=== PATIENT | female | born 1935 | race Caucasian/White ===

== ENCOUNTER 2017-10-02 18:10 | Inpatient (IN) | payer OTHER ==
[~2017-10-02] VITALS: Ht 170.2 cm; Wt 81.3 kg
[~2017-10-02 18:10] MED LIST: GALA4 PO; LISI5 PO; METF500 PO; METO100ER PO; NAPR500 PO; NITR50 PO; OMEP20ER PO; SIMV20 PO; ZYPREXA PO
[2017-10-02 20:05] LABS: BASOPHILS ABSOLUTE AUTO 0.02 K/mm3 (0.00-0.23); BASOPHILS PERCENT AUTO 0 % (0-2); EOSINOPHILS ABSOLUTE AUTO 0.07 K/mm3 (0.00-0.68); EOSINOPHILS PERCENT AUTO 1 % (0-6); Hematocrit 33.6 % (33.0-51.0); Hemoglobin 10.3 g/dL (11.5-16.0); IMMATURE GRAN ABSOLUTE AUTO 0.03 K/mm3 (0.00-0.10); IMMATURE GRAN PERCENT AUTO 0 % (0-1); LYMPHOCYTES ABSOLUTE AUTO 2.47 K/mm3 (0.84-5.20); LYMPHOCYTES PERCENT AUTO 25 % (21-46); MONOCYTES ABSOLUTE AUTO 0.92 K/mm3 (0.16-1.47); MONOCYTES PERCENT AUTO 9 % (4-13); Mean Corpuscular HGB 28.1 pg (26.0-34.0); Mean Corpuscular HGB Conc 30.7 g/dL (31.5-36.5); Mean Corpuscular Volume 92 fL (80-100); Mean Platelet Volume 9.4 fL (9.1-12.4); NEUTROPHILS ABSOLUTE AUTO 6.27 K/mm3 (1.96-9.15); NEUTROPHILS PERCENT AUTO 64 % (41-73); Platelet Count 219 K/mm3 (150-400); RDW Coefficient Variation 17.2 % (11.7-14.2); RDW Standard Deviation 56.2 fL (35.1-46.3); Red Blood Cell Count 3.66 M/mm3 (3.80-5.20); White Blood Cell Count 9.78 K/mm3 (4.00-11.30)
[2017-10-02 20:31] LABS: Alanine Aminotransfer (ALT/SGP 16 U/L (12-78); Albumin/Globulin Ratio 0.8 (0.8-1.8); Alk Phos 38 U/L (50-136); Anion Gap 9 mmol/L (6-16); Aspartate Aminotrans (AST/SGOT 25 U/L (12-37); Bilirubin, Total 0.3 mg/dL (0.1-1.0); Blood Urea Nitrogen 18 mg/dL (8-24); Bun/Creatinine Ratio 26.7 (12.0-20.0); CO2, Blood 26 mmol/L (21-32); Calcium, Blood 8.9 mg/dL (8.5-10.1); Chloride, Blood 105 mmol/L (98-108); Creatinine, Blood 0.67 mg/dL (0.40-1.00); Glomerular Filtration Rate >60 (60-); Glucose, Blood 160 mg/dL (70-99); Potassium, Blood 3.9 mmol/L (3.5-5.5); Sodium, Blood 140 mmol/L (136-145)
[2017-10-02] MEDS ORDERED: DOCU100 PO (21:47)
[2017-10-02] MEDS ORDERED: GALA4 PO (21:47)
[2017-10-02] MEDS ORDERED: MELA3 PO (21:48)
[2017-10-02] MEDS ORDERED: HYDR1TAB94 PO (21:48)
[2017-10-02] MEDS ORDERED: METF500C PO (21:49)
[2017-10-02] MEDS ORDERED: MIRT15 PO (21:51)
[2017-10-02] MEDS ORDERED: QUET25 PO (21:53)
[2017-10-03 04:29] LABS: BASOPHILS ABSOLUTE AUTO 0.02 K/mm3 (0.00-0.23); BASOPHILS PERCENT AUTO 0 % (0-2); EOSINOPHILS ABSOLUTE AUTO 0.05 K/mm3 (0.00-0.68); EOSINOPHILS PERCENT AUTO 1 % (0-6); Hematocrit 30.1 % (33.0-51.0); Hemoglobin 9.4 g/dL (11.5-16.0); IMMATURE GRAN ABSOLUTE AUTO 0.04 K/mm3 (0.00-0.10); IMMATURE GRAN PERCENT AUTO 1 % (0-1); LYMPHOCYTES ABSOLUTE AUTO 1.98 K/mm3 (0.84-5.20); LYMPHOCYTES PERCENT AUTO 25 % (21-46); MONOCYTES ABSOLUTE AUTO 0.79 K/mm3 (0.16-1.47); MONOCYTES PERCENT AUTO 10 % (4-13); Mean Corpuscular HGB 28.4 pg (26.0-34.0); Mean Corpuscular HGB Conc 31.2 g/dL (31.5-36.5); Mean Corpuscular Volume 91 fL (80-100); Mean Platelet Volume 9.2 fL (9.1-12.4); NEUTROPHILS ABSOLUTE AUTO 5.09 K/mm3 (1.96-9.15); NEUTROPHILS PERCENT AUTO 64 % (41-73); Platelet Count 197 K/mm3 (150-400); RDW Coefficient Variation 16.8 % (11.7-14.2); RDW Standard Deviation 54.8 fL (35.1-46.3); Red Blood Cell Count 3.31 M/mm3 (3.80-5.20); White Blood Cell Count 7.97 K/mm3 (4.00-11.30)
[2017-10-03 04:50] LABS: Anion Gap 8 mmol/L (6-16); Blood Urea Nitrogen 15 mg/dL (8-24); Bun/Creatinine Ratio 23.1 (12.0-20.0); CO2, Blood 28 mmol/L (21-32); Calcium, Blood 8.5 mg/dL (8.5-10.1); Chloride, Blood 107 mmol/L (98-108); Creatinine, Blood 0.65 mg/dL (0.40-1.00); Glomerular Filtration Rate >60 (60-); Glucose, Blood 93 mg/dL (70-99); Potassium, Blood 3.8 mmol/L (3.5-5.5); Sodium, Blood 143 mmol/L (136-145)
[2017-10-04 09:49] LABS: Adenovirus F 40/41 Not Detected (NOT DETECT); Astrovirus Not Detected (NOT DETECT); Campylobacter Sp Not Detected (NOT DETECT); Cryptosporidium Not Detected (NOT DETECT); Cyclospora Cayetanensis Not Detected (NOT DETECT); E. Coli O157 Not Detected (NOT DETECT); Entamoeba Histolytica Not Detected (NOT DETECT); Enteroaggregative E. coli-EAEC Not Detected (NOT DETECT); Enteropathogenic E. coli-EPEC Not Detected (NOT DETECT); Enterotoxigenic E. coli-ETEC Not Detected (NOT DETECT); Giardia Lamblia Not Detected (NOT DETECT); Norovirus GI/GII Not Detected (NOT DETECT); Plesiomonas Shigelloides Not Detected (NOT DETECT); Rotavirus A Not Detected (NOT DETECT); Salmonella Sp Not Detected (NOT DETECT); Sapovirus Not Detected (NOT DETECT); Shiga Toxin-prod E. coli-STEC Not Detected (NOT DETECT); Shigella/Enteroin E. coli-EIEC Not Detected (NOT DETECT); Vibrio Cholerae Not Detected (NOT DETECT); Vibrio Sp Not Detected (NOT DETECT); Yersinia Enterocolitica Not Detected (NOT DETECT)
[2017-10-05] MEDS ORDERED: GALA8 PO (16:25)
[2017-10-05] MEDS ORDERED: ACET325 PO (16:28)
[2017-10-05] MEDS ORDERED: BENADRYL25 MG PO (16:29)
[2017-10-05] MEDS ORDERED: LEVO750 PO (16:30)
== END 2017-10-05 16:50 | DRG 871 ==
LOC: ER 18:10 → MEDS 21:14
PROVIDERS: Family Medicine; Physician Assistant
DX: A41.9 Sepsis, unspecified organism (principal); J96.01 Acute respiratory failure with hypoxia; J18.9 Pneumonia, unspecified organism; I10 Essential (primary) hypertension; E11.9 Type 2 diabetes mellitus without complications; E78.5 Hyperlipidemia, unspecified; F20.9 Schizophrenia, unspecified; D64.9 Anemia, unspecified; F03.90 Unspecified dementia, unspecified severity, without behavioral disturbance, psychotic disturbance, mood disturbance, and anxiety; E66.9 Obesity, unspecified; Z68.27 Body mass index [BMI] 27.0-27.9, adult
CPT/HCPCS: 36415; 71046; 80048; 80053; 82947; 83605; 85025; 87507; 92610; 93005; 93010; 94667; 96365; 96366; 99285; G8996; G8997; G8998; J0456; J1956; J7030; J7050

== ENCOUNTER → 2018-09-19 | Outpatient (CLI) | payer OTHER ==
[~2018-09-19] MED LIST changes: +ACET325 PO; +BENADRYL25 MG PO; +DOCU100 PO; +GALA8 PO; +HYDR1TAB94 PO; +LEVO750 PO; +MELA3 PO; +METF500C PO; +MIRT15 PO; +QUET25 PO
[2018-09-19 18:22] LABS: Source, Urine Clean Catch
[2018-09-19 18:47] LABS: Bilirubin, Urine Neg (Neg); Blood, Urine 1+ (Neg); Glucose Qualitative, Urine Neg (Neg); Ketones, Urine Neg (Neg); Leukocyte Esterase, Urine 2+ (Neg); Nitrite, Urine Neg (Neg); Protein, Urine 1+ (Neg); Urobilinogen, Urine NORM (Normal)
[2018-09-19 18:54] LABS: Appearance, Urine Clear (Clear); Color, Urine Yellow (P-Yellow)
[2018-09-19 18:56] LABS: Bacteria Many /hpf; Mucus Light (0-Heavy); Red Blood Cells, Urine 0-2 /hpf (0-2); Squamous Epithelial Cells Few /hpf (Few); White Blood Cells, Urine 50-100 /hpf (0-5)
== END | disposition home or self-care (01) ==
LOC: LAB 18:18 → LAB SHORT 18:18
PROVIDERS: Physician Assistant
DX: N39.0 Urinary tract infection, site not specified (principal)
CPT/HCPCS: 81001; 87086

== ENCOUNTER → 2021-08-21 | Outpatient (CLI) | payer OTHER ==
[~2021-08-21] MED LIST changes: +ARNUITY ELLIP100 MCG IH; +Norco 5-325 Ta1 EACH PO; +OYSTER SHELL 51 EAC2 PO; +VITAMIN B COMP1 EAC1 PO; +VITAMIN D31000 UNI1
[2021-08-21 10:01] LABS: Source, Urine Voided
[2021-08-21 11:12] LABS: Appearance, Urine Clear (Clear); Bilirubin, Urine Neg (Neg); Blood, Urine Neg (Neg); Color, Urine Yellow (P-Yellow); Glucose Qualitative, Urine Neg (Neg); Ketones, Urine Neg (Neg); Leukocyte Esterase, Urine Neg (Neg); Nitrite, Urine Neg (Neg); Protein, Urine Neg (Neg); Specific Gravity, Urine 1.015 (1.003-1.022); Urobilinogen, Urine NORM (Normal); pH, Urine 6.5 (5.0-8.0)
== END | disposition home or self-care (01) ==
LOC: LAB SHORT 09:59 → LAB 09:59
PROVIDERS: Family Medicine
DX: N39.0 Urinary tract infection, site not specified (principal)
CPT/HCPCS: 81003

== ENCOUNTER → 2022-03-15 | Outpatient (CLI) | payer OTHER ==
[2022-03-15 11:45] LABS: Source, Urine Clean Catch
[2022-03-15 13:23] LABS: Appearance, Urine Turbid (Clear); Bilirubin, Urine Neg (Neg); Blood, Urine Neg (Neg); Color, Urine Yellow (P-Yellow); Glucose Qualitative, Urine Neg (Neg); Ketones, Urine Neg (Neg); Leukocyte Esterase, Urine Neg (Neg); Nitrite, Urine Neg (Neg); Protein, Urine 1+ (Neg); Specific Gravity, Urine 1.025 (1.003-1.022); Urobilinogen, Urine NORM (Normal)
[2022-03-15 13:56] LABS: Amorphous Heavy (0-Heavy); Bacteria Rare /hpf; Red Blood Cells, Urine 0-2 /hpf (0-2); Squamous Epithelial Cells Rare /hpf (Few); White Blood Cells, Urine 0-2 /hpf (0-5)
== END | disposition home or self-care (01) ==
LOC: LAB SHORT 11:44 → LAB 11:44
PROVIDERS: Family Medicine
DX: N39.0 Urinary tract infection, site not specified (principal)
CPT/HCPCS: 81001

== ENCOUNTER 2022-11-01 00:24 | Day surgery (SDC) | payer OTHER ==
[~2022-11-01 00:24] MED LIST changes: +CLIN150 PO
== END 2022-11-01 22:58 | disposition home or self-care (01) ==
LOC: WOUND 00:24
DX: E11.622 Type 2 diabetes mellitus with other skin ulcer (principal); L97.812 Non-pressure chronic ulcer of other part of right lower leg with fat layer exposed; I73.9 Peripheral vascular disease, unspecified; I87.2 Venous insufficiency (chronic) (peripheral)
CPT/HCPCS: A9270; G0463

== ENCOUNTER 2022-11-15 02:19 | Day surgery (SDC) | payer OTHER | END 2022-11-15 22:48 | disposition home or self-care (01) | LOC: WOUND 02:19 | DX: E11.622 Type 2 diabetes mellitus with other skin ulcer (principal); L97.812 Non-pressure chronic ulcer of other part of right lower leg with fat layer exposed; E11.51 Type 2 diabetes mellitus with diabetic peripheral angiopathy without gangrene; I87.2 Venous insufficiency (chronic) (peripheral) | CPT/HCPCS: A9270; G0463 ==

== ENCOUNTER 2022-11-22 02:03 | Day surgery (SDC) | payer OTHER | END 2022-11-22 22:39 | disposition home or self-care (01) | LOC: WOUND 02:03 | DX: E11.622 Type 2 diabetes mellitus with other skin ulcer (principal); L97.812 Non-pressure chronic ulcer of other part of right lower leg with fat layer exposed; I87.2 Venous insufficiency (chronic) (peripheral); E11.51 Type 2 diabetes mellitus with diabetic peripheral angiopathy without gangrene | CPT/HCPCS: G0463 ==

== ENCOUNTER 2022-11-29 02:18 | Day surgery (SDC) | payer OTHER | END 2022-11-29 22:55 | disposition home or self-care (01) | LOC: WOUND 02:18 | DX: E11.622 Type 2 diabetes mellitus with other skin ulcer (principal); L97.812 Non-pressure chronic ulcer of other part of right lower leg with fat layer exposed; I87.2 Venous insufficiency (chronic) (peripheral); E11.51 Type 2 diabetes mellitus with diabetic peripheral angiopathy without gangrene | CPT/HCPCS: G0463 ==

== ENCOUNTER 2022-12-06 00:50 | Day surgery (SDC) | payer OTHER | END 2022-12-06 22:45 | disposition home or self-care (01) | LOC: WOUND 00:50 | DX: E11.622 Type 2 diabetes mellitus with other skin ulcer (principal); L97.812 Non-pressure chronic ulcer of other part of right lower leg with fat layer exposed; E11.51 Type 2 diabetes mellitus with diabetic peripheral angiopathy without gangrene; I87.2 Venous insufficiency (chronic) (peripheral) | CPT/HCPCS: G0463 ==

== ENCOUNTER 2023-01-18 09:57 | Inpatient (IN) | payer OTHER ==
[~2023-01-18] VITALS: Ht 162.6 cm; Wt 68.0 kg
[~2023-01-18 09:57] MED LIST changes: -ARNUITY ELLIP100 MCG IH; +ARNUITY ELLIP100 MCG INH; -GALA8 PO; +GALANTAMINE PO; -SIMV20 PO; +Seroquel Xr50 MG PO; -VITAMIN D31000 UNI1; +VITAMIN D31000 UNI1 PO; +ZOCOR20 MG PO
[2023-01-18 11:23] LABS: BASOPHILS ABSOLUTE AUTO 0.04 K/mm3 (0.00-0.23); BASOPHILS PERCENT AUTO 0 % (0-2); EOSINOPHILS ABSOLUTE AUTO 0.04 K/mm3 (0.00-0.68); EOSINOPHILS PERCENT AUTO 0 % (0-6); Hematocrit 30.4 % (33.0-51.0); Hemoglobin 9.6 g/dL (11.5-16.0); IMMATURE GRAN ABSOLUTE AUTO 0.05 K/mm3 (0.00-0.10); IMMATURE GRAN PERCENT AUTO 0 % (0-1); LYMPHOCYTES ABSOLUTE AUTO 0.94 K/mm3 (0.84-5.20); LYMPHOCYTES PERCENT AUTO 8 % (21-46); MONOCYTES PERCENT AUTO 8 % (4-13); Mean Corpuscular HGB 28.3 pg (26.0-34.0); Mean Corpuscular HGB Conc 31.6 g/dL (31.5-36.5); Mean Corpuscular Volume 90 fL (80-100); Mean Platelet Volume 9.6 fL (9.1-12.4); NEUTROPHILS ABSOLUTE AUTO 9.76 K/mm3 (1.96-9.15); NEUTROPHILS PERCENT AUTO 83 % (41-73); Platelet Count 230 K/mm3 (150-400); RDW Coefficient Variation 21.8 % (11.7-14.2); RDW Standard Deviation 71.7 fL (35.1-46.3); Red Blood Cell Count 3.39 M/mm3 (3.80-5.20); White Blood Cell Count 11.73 K/mm3 (4.00-11.30)
[2023-01-18 11:37] LABS: Albumin, Blood 3.4 g/dL (3.4-5.0); Bilirubin, Total 0.4 mg/dL (0.1-1.0); Bun/Creatinine Ratio 21.8 (12.0-20.0); Calcium, Blood 8.8 mg/dL (8.5-10.1); Creatinine, Blood 0.78 mg/dL (0.40-1.00); Globulin, Blood 3.5 g/dL (2.2-4.0); Potassium, Blood 4.2 mmol/L (3.5-5.5); Total Protein, Blood 6.9 g/dL (6.4-8.2)
[2023-01-18 12:15] LABS: Influenza A, PCR NEGATIVE (NEGATIVE); Influenza B, PCR NEGATIVE (NEGATIVE); Resp Syncytial Virus, PCR NEGATIVE (NEGATIVE); SARS-Cov-2 (COVID-19) PCR, MMC NEGATIVE (NEGATIVE)
--- NOTE | 2023-01-18 15:47 | NUR ---
ASSUMED CARE OF PT. PT ARRIVED IN ROOM AT AROUND 1535 VIA GURNEY FROM THE ED. PT ALERT AND ORIENTED TO ROOM AND UNIT.
[2023-01-18 15:54] VITALS: BP 151/82
[2023-01-18] MEDS ORDERED: GUAI600T33 PO (17:47)
[2023-01-18] MEDS ORDERED: Seroquel Xr50 MG PO (17:48)
--- NOTE | 2023-01-18 18:00 | NUR ---
SHIFT SUMMARY PT AND FAMILY ORIENTED TO ROOM AND EDUCATED ON FIRE SAFETY. PT HAS CRITICAL LACTIC ACID LEVELS, DR NOTIFIED OF CURRENT CONDITION. NO ACUTE EVENTS DURING SHIFT, PT LEFT IN A POSITION OF SAFETY WITH BED LOCKED AND IN LOWEST POSITION, FAMILY AT BEDSIDE, NONSKID SOCKS IN PLACE, CALL LIGHT WITHIN REACH.
[2023-01-18 19:37] VITALS: BP 142/66
[2023-01-18 22:55] VITALS: BP 154/59
[2023-01-19 04:51] VITALS: BP 143/61
[2023-01-19 06:15] LABS: BASOPHILS ABSOLUTE AUTO 0.05 K/mm3 (0.00-0.23); BASOPHILS PERCENT AUTO 0 % (0-2); EOSINOPHILS PERCENT AUTO 1 % (0-6); Hematocrit 28.3 % (33.0-51.0); Hemoglobin 8.9 g/dL (11.5-16.0); IMMATURE GRAN PERCENT AUTO 1 % (0-1); LYMPHOCYTES ABSOLUTE AUTO 2.16 K/mm3 (0.84-5.20); LYMPHOCYTES PERCENT AUTO 18 % (21-46); MONOCYTES ABSOLUTE AUTO 1.49 K/mm3 (0.16-1.47); MONOCYTES PERCENT AUTO 13 % (4-13); Mean Corpuscular HGB 28.2 pg (26.0-34.0); Mean Corpuscular HGB Conc 31.4 g/dL (31.5-36.5); Mean Corpuscular Volume 90 fL (80-100); Mean Platelet Volume 9.8 fL (9.1-12.4); NEUTROPHILS ABSOLUTE AUTO 7.88 K/mm3 (1.96-9.15); NEUTROPHILS PERCENT AUTO 67 % (41-73); Platelet Count 217 K/mm3 (150-400); RDW Standard Deviation 72.5 fL (35.1-46.3); Red Blood Cell Count 3.16 M/mm3 (3.80-5.20); White Blood Cell Count 11.78 K/mm3 (4.00-11.30)
--- NOTE | 2023-01-19 06:22 | NUR ---
SUMMARY: PT HAS DEMENTIA BUT IS A/O TO SELF AND "[place]" AND IS ABLE TO SPECIFY NEEDS WHEN STAFF IN ROOM. BED ALARM ON FOR FALL RISK AND IMPULSIVITY W/REMINDERS PROVIDED PRN. SHE BECOMES VERY TACHYPNEIC AND SOB AT TIMES, MADE WORSE WHEN SPEAKING OR W/MINIMAL EXERTION. LS ARE COARSE W/CRACKLES T/O AND PT HAS DIFFICULTY COUGHING TO CLEAR SECRETIONS. RT CONSULTED AND HOPSITALIST RX'D FLUTTER AND ALBUTEROL TX'S. PT ENCOURAGED TO DEEP BREATH AND COUGH W/PRN ORAL SUCTIONING ATTENDED TO. FLUTTER VALVE WAS THEN RX'D W/SCOPALAMINE PATCH PLACED TO HELP W/EXCESS SECRETIONS. LS REMAIN CONGESTED AND COARSE BUT RESP EFFORT AND DYSPNEA SLIGHTLY IMPROVED, SPO2 SUSTAINED >92% ON 2L O2 VIA NC. ABX TO BE RECEIVED ON DAY SHIFT FOR PROBABLE PNM. SHE REMAINS ON TELE IN NSR AT 60'S BPM, OCC S.TACH W/EXERTION. PT CONT/INCONT AND WAS 1-2PA OOB TO BSC W/ATTENDS CHANGED PRN. NO ACUTE CHANGS, VSS/AFEBRILE. WCTM AND REPORT TO DAY RN.
[2023-01-19 06:45] LABS: Albumin/Globulin Ratio 0.9 (0.8-1.8); Bilirubin, Total 0.3 mg/dL (0.1-1.0); Bun/Creatinine Ratio 19.8 (12.0-20.0); Calcium, Blood 8.6 mg/dL (8.5-10.1); Creatinine, Blood 0.61 mg/dL (0.40-1.00); Globulin, Blood 3.5 g/dL (2.2-4.0); Total Protein, Blood 6.5 g/dL (6.4-8.2)
[2023-01-19 07:10] VITALS: BP 148/56
[2023-01-19 15:17] VITALS: BP 174/65
--- NOTE | 2023-01-19 18:09 | NUR ---
SHIFT SUMMARY PT A&O TO SELF AND PERSON. PT CONFUSED AND REORIENTABLE. PT ATTEMPTS TO AMBULATE INDEPENDENTLY AND REQUIRES INCREASED MONITORING. DOOR LEFT OPEN, BED/CHAIR ALARM IN PLACE. VSS. PT STILL EXPERIENCING ABNORMAL LUNG SOUNDS AND HAS BEEN ENCOURAGED TO DEEP BREATH AND COUGH ALONG WITH UTELIZE THE FLUTTER VALVE. RT ON BOARD WITH PROVIDING CARE. PT LEFT IN A POSITION OF SAFETY WITH BED LOCKED AND IN LOWEST POSITION, CALL LIGHT WITHIN REACH, NONSKID SOCKS IN PLACE, FLOOR CLEAR OF [place]BRIS, DOOR OPEN TO MAINTAIN OBSERVATION, AND BED ALARM ENABLED. NO ACUTE CHANGES DURING MY SHIFT, NO QUESTIONS OR CONCERNS AT THIS TIME.
--- NOTE | 2023-01-19 19:30 | NUR ---
RECEIVED BEDSIDE REPORT FROM TIMO RN. PT IN BED. ALERT TO SELF ONLY. RESP EVEN ON 2L VIA NC. WILL PROVIDE CARE T/O SHIFT. CALL LT IN REACH. BED ALARM ON.
[2023-01-19 19:52] VITALS: BP 142/58
--- NOTE | 2023-01-19 23:00 | NUR ---
PT RESTING QUIETLY. BED ALARM ON. CALL LT IN REACH.
--- NOTE | 2023-01-20 05:30 | NUR ---
SHIFT SUMMARY: PT ALERT TO SELF. PLEASANTLY CONFUSED. SET BED ALARM OFF A FEW TIMES HOWEVER WAS REDIRECTABLE. TOOK MEDS WHOLE ONE AT A TIME WITH WATER WITHOUT DIFFICULTY. MEDICATED WITH ONE NORCO TAB AT 0200 WITH GOOD PAIN RELIEF, PATIENT WAS ABLE REST WELL T/O THE SHIFT. WILL CONTINUE TO PROVIDE CARE UNTIL SHIFT REPORT TO ONCOMING NURSE.
--- NOTE | 2023-01-20 06:41 | NUR ---
ASSISTED PT TO THE BSC AND BACK TO BED. PT PLEASANTLY CONFUSED. EASILY DIRECTABLE. BED ALARM ON AND CALL LT IN REACH.
[2023-01-20 07:11] VITALS: BP 171/61
[2023-01-20 12:09] LABS: BASOPHILS ABSOLUTE AUTO 0.06 K/mm3 (0.00-0.23); BASOPHILS PERCENT AUTO 1 % (0-2); EOSINOPHILS ABSOLUTE AUTO 0.25 K/mm3 (0.00-0.68); EOSINOPHILS PERCENT AUTO 2 % (0-6); Hematocrit 30.2 % (33.0-51.0); Hemoglobin 9.6 g/dL (11.5-16.0); IMMATURE GRAN ABSOLUTE AUTO 0.19 K/mm3 (0.00-0.10); IMMATURE GRAN PERCENT AUTO 2 % (0-1); LYMPHOCYTES ABSOLUTE AUTO 2.69 K/mm3 (0.84-5.20); LYMPHOCYTES PERCENT AUTO 24 % (21-46); MONOCYTES ABSOLUTE AUTO 1.42 K/mm3 (0.16-1.47); MONOCYTES PERCENT AUTO 13 % (4-13); Mean Corpuscular HGB 28.3 pg (26.0-34.0); Mean Corpuscular HGB Conc 31.8 g/dL (31.5-36.5); Mean Corpuscular Volume 89 fL (80-100); Mean Platelet Volume 9.8 fL (9.1-12.4); NEUTROPHILS ABSOLUTE AUTO 6.63 K/mm3 (1.96-9.15); NEUTROPHILS PERCENT AUTO 59 % (41-73); Platelet Count 233 K/mm3 (150-400); RDW Coefficient Variation 21.7 % (11.7-14.2); RDW Standard Deviation 72.2 fL (35.1-46.3); Red Blood Cell Count 3.39 M/mm3 (3.80-5.20); White Blood Cell Count 11.24 K/mm3 (4.00-11.30)
[2023-01-20 12:31] LABS: Bun/Creatinine Ratio 20.3 (12.0-20.0); Calcium, Blood 8.8 mg/dL (8.5-10.1); Creatinine, Blood 0.64 mg/dL (0.40-1.00); Potassium, Blood 3.5 mmol/L (3.5-5.5)
[2023-01-20 16:01] VITALS: BP 154/55
--- NOTE | 2023-01-20 18:02 | NUR ---
SHIFT SUMMARY PT ALERT AND ORIENTED TO SELF AND PERSON. ABLE TO RECOGNIZE FAMILY MEMBERS. PLEASANTLY CONFUSED, BUT FOR THE MOST PART REORIENTABLE. SHE MAKES FREQUENT ATTEMPTS TO AMBULATE ALONE, BED/CHAIR ALARMS SET. VSS. NO ACUTE EVENTS DURING SHIFT. PT LEFT IN A POSITION OF SAFETY WITH BED LOCKED AND IN LOWEST POSITION, NONSKID SOCKS IN PLACE, ROOM CLEAR OF DEBRIS, CALL LIGHT WITHIN REACH, AND BED/CHAIR ALARM ENABLED.
[2023-01-20 20:19] VITALS: BP 113/44
[2023-01-21 03:49] VITALS: BP 113/44
--- NOTE | 2023-01-21 05:11 | NUR ---
SHIFT SUMMARY PT IS A&O TO SELF ONLY, 2L NC SATS LOW 90'S, UP WITH ONE TO BSC, [place] USED OVERNIGHT FOR INCONTINENCE, NO COMPLAINTS OF PAIN OVERNIGHT OR ACUTE EVENTS, CONTINUE POC
[2023-01-21 07:41] VITALS: BP 132/71
[2023-01-21 09:52] LABS: BASOPHILS ABSOLUTE AUTO 0.08 K/mm3 (0.00-0.23); BASOPHILS PERCENT AUTO 1 % (0-2); EOSINOPHILS ABSOLUTE AUTO 0.37 K/mm3 (0.00-0.68); EOSINOPHILS PERCENT AUTO 4 % (0-6); Hemoglobin 9.8 g/dL (11.5-16.0); IMMATURE GRAN ABSOLUTE AUTO 0.14 K/mm3 (0.00-0.10); IMMATURE GRAN PERCENT AUTO 2 % (0-1); LYMPHOCYTES ABSOLUTE AUTO 1.88 K/mm3 (0.84-5.20); LYMPHOCYTES PERCENT AUTO 21 % (21-46); MONOCYTES ABSOLUTE AUTO 0.92 K/mm3 (0.16-1.47); MONOCYTES PERCENT AUTO 10 % (4-13); Mean Corpuscular HGB 28.4 pg (26.0-34.0); Mean Corpuscular HGB Conc 31.6 g/dL (31.5-36.5); Mean Corpuscular Volume 90 fL (80-100); Mean Platelet Volume 9.3 fL (9.1-12.4); NEUTROPHILS PERCENT AUTO 63 % (41-73); Platelet Count 220 K/mm3 (150-400); RDW Coefficient Variation 21.8 % (11.7-14.2); Red Blood Cell Count 3.45 M/mm3 (3.80-5.20); White Blood Cell Count 9.19 K/mm3 (4.00-11.30)
[2023-01-21 10:13] LABS: Albumin, Blood 2.9 g/dL (3.4-5.0); Albumin/Globulin Ratio 0.8 (0.8-1.8); Bilirubin, Total 0.3 mg/dL (0.1-1.0); Bun/Creatinine Ratio 21.9 (12.0-20.0); Calcium, Blood 9.3 mg/dL (8.5-10.1); Creatinine, Blood 0.59 mg/dL (0.40-1.00); Globulin, Blood 3.6 g/dL (2.2-4.0); Potassium, Blood 3.8 mmol/L (3.5-5.5); Total Protein, Blood 6.5 g/dL (6.4-8.2)
[2023-01-21 16:16] VITALS: BP 134/60
--- NOTE | 2023-01-21 18:37 | NUR ---
SHIFT SUMMARY PT A&0 TO SELF AND PERSON, EASILY CONFUSED, AND EASY TO REORIENT. NO ACUTE CHANGES THIS SHIFT. PLAN FOR DISCHARGE TUESDAY TO [place]. CALL LIGHT WITHIN REACH.
[2023-01-21 20:48] VITALS: BP 132/98
--- NOTE | 2023-01-22 05:39 | NUR ---
SHIFT SUMMARY PT IS A&O TO SELF, ON RA NOW, UP WITH 1 TO BSC, PT SET OFF BED ALARM 2 TIMES THROUGHOUT NIGHT, SOME AGITATION EARLY AM PRN SEROQUEL GIVEN PER MAR X1, PRN PAIN MEDICATION GIVEN X1 FOR LEG PAIN, BED ALARM ON, CONTINUE POC
[2023-01-22 07:44] VITALS: BP 121/43
[2023-01-22 15:59] VITALS: BP 135/56
--- NOTE | 2023-01-22 17:18 | NUR ---
SHIFT SUMMARY PT A&0 TO SELF AND PERSON, EASILY CONFUSED, BUT EASY TO REORIENT. BED ALARM IS ON. NO ACUTE CHANGES THIS SHIFT. PLAN FOR DISCHARGE TUESDAY TO [place]. CALL LIGHT WITHIN REACH.
[2023-01-22 20:53] VITALS: BP 126/68
--- NOTE | 2023-01-23 04:36 | NUR ---
SHIFT SUMMARY PATIENT A/Ox2, PLEASANT AFFECT, COOPERATIVE WITH CARES. DENIES PAIN NOR DISCOMFORT. SITTING UP IN CHAIR, PREOCCUPIED WITH WRITING. DOES NOT USE CALL LIGHT, SET OFF BED ALARM 2x THIS SHIFT, TO GO TO THE BATHROOM. EASILY REDIRECTS. ASLEEP OFF AND ON THROUGHOUT THE NIGHT. PATIENT AWAITING DISCHARGE ON TUESDAY TO [facility]. NO ACUTE CHANGES NOTED OVERNIGHT. BED LOCKED AND IN LOWEST POSITION, CALL LIGHT WITHIN REACH.
[2023-01-23 07:38] VITALS: BP 132/52
[2023-01-23 13:26] LABS: BASOPHILS ABSOLUTE AUTO 0.09 K/mm3 (0.00-0.23); BASOPHILS PERCENT AUTO 1 % (0-2); EOSINOPHILS ABSOLUTE AUTO 0.38 K/mm3 (0.00-0.68); EOSINOPHILS PERCENT AUTO 4 % (0-6); Hematocrit 34.6 % (33.0-51.0); IMMATURE GRAN ABSOLUTE AUTO 0.19 K/mm3 (0.00-0.10); IMMATURE GRAN PERCENT AUTO 2 % (0-1); LYMPHOCYTES ABSOLUTE AUTO 2.52 K/mm3 (0.84-5.20); LYMPHOCYTES PERCENT AUTO 29 % (21-46); MONOCYTES ABSOLUTE AUTO 0.95 K/mm3 (0.16-1.47); MONOCYTES PERCENT AUTO 11 % (4-13); Mean Corpuscular HGB 28.6 pg (26.0-34.0); Mean Corpuscular HGB Conc 31.8 g/dL (31.5-36.5); Mean Corpuscular Volume 90 fL (80-100); Mean Platelet Volume 9.9 fL (9.1-12.4); NEUTROPHILS PERCENT AUTO 53 % (41-73); Platelet Count 306 K/mm3 (150-400); RDW Coefficient Variation 21.5 % (11.7-14.2); RDW Standard Deviation 70.4 fL (35.1-46.3); Red Blood Cell Count 3.85 M/mm3 (3.80-5.20); White Blood Cell Count 8.73 K/mm3 (4.00-11.30)
[2023-01-23 13:53] LABS: Albumin, Blood 3.3 g/dL (3.4-5.0); Albumin/Globulin Ratio 0.7 (0.8-1.8); Bilirubin, Total 0.3 mg/dL (0.1-1.0); Bun/Creatinine Ratio 30.1 (12.0-20.0); Calcium, Blood 9.5 mg/dL (8.5-10.1); Creatinine, Blood 0.73 mg/dL (0.40-1.00); Globulin, Blood 4.7 g/dL (2.2-4.0); Potassium, Blood 3.7 mmol/L (3.5-5.5)
[2023-01-23 15:51] VITALS: BP 151/51
--- NOTE | 2023-01-23 17:28 | NUR ---
SHIFT SUMMARY PT A&O TO SELF AND PERSON, EASILY CONFUSED, BUT EASY TO REORIENT. BED ALARM ON. NO ACUTE CHANGES THIS SHIFT. PLAN FOR DISCHARGE TOMORROW TO [place] [address]. CALL LIGHT WITHIN REACH.
[2023-01-23 19:34] VITALS: BP 135/65
[2023-01-24 02:15] VITALS: BP 132/86
--- NOTE | 2023-01-24 04:30 | NUR ---
SHIFT SUMMARY: PT IS ALERT TO SELF, HX OF DEMENTIA. PT IS CALM AND COOPERATIVE WITH CARE. PT DOES NOT USE HER CALL LIGHT, SET OFF BED ALARM ON ONE OCCASION, SHE IS A STANDBY ASSIST TO THE BATHROOM WITH A FWW. PT DENIES PAIN, NAUSEA, VOMITING, AND SOB. POSS DC BACK TO [facility]. TODAY. NO ACUTE CHANGES OR COMPLICATIONS. WILL CONTINUE TO MONITOR AND REPORT TO DAY NURSE.
[2023-01-24 07:28] VITALS: BP 143/42
[2023-01-24 10:27] VITALS: BP 115/60
[2023-01-24 13:01] LABS: BASOPHILS ABSOLUTE AUTO 0.07 K/mm3 (0.00-0.23); BASOPHILS PERCENT AUTO 1 % (0-2); EOSINOPHILS ABSOLUTE AUTO 0.31 K/mm3 (0.00-0.68); EOSINOPHILS PERCENT AUTO 3 % (0-6); Hematocrit 32.9 % (33.0-51.0); Hemoglobin 10.6 g/dL (11.5-16.0); IMMATURE GRAN ABSOLUTE AUTO 0.16 K/mm3 (0.00-0.10); IMMATURE GRAN PERCENT AUTO 2 % (0-1); LYMPHOCYTES ABSOLUTE AUTO 2.95 K/mm3 (0.84-5.20); LYMPHOCYTES PERCENT AUTO 30 % (21-46); MONOCYTES ABSOLUTE AUTO 1.08 K/mm3 (0.16-1.47); MONOCYTES PERCENT AUTO 11 % (4-13); Mean Corpuscular HGB 28.1 pg (26.0-34.0); Mean Corpuscular HGB Conc 32.2 g/dL (31.5-36.5); Mean Corpuscular Volume 87 fL (80-100); NEUTROPHILS ABSOLUTE AUTO 5.19 K/mm3 (1.96-9.15); NEUTROPHILS PERCENT AUTO 53 % (41-73); Platelet Count 298 K/mm3 (150-400); RDW Coefficient Variation 21.7 % (11.7-14.2); RDW Standard Deviation 69.9 fL (35.1-46.3); Red Blood Cell Count 3.77 M/mm3 (3.80-5.20); White Blood Cell Count 9.76 K/mm3 (4.00-11.30)
[2023-01-24 13:45] LABS: Albumin, Blood 3.3 g/dL (3.4-5.0); Albumin/Globulin Ratio 0.8 (0.8-1.8); Bilirubin, Total 0.3 mg/dL (0.1-1.0); Bun/Creatinine Ratio 27.2 (12.0-20.0); Calcium, Blood 9.9 mg/dL (8.5-10.1); Creatinine, Blood 0.74 mg/dL (0.40-1.00); Globulin, Blood 4.2 g/dL (2.2-4.0); Potassium, Blood 3.9 mmol/L (3.5-5.5); Total Protein, Blood 7.5 g/dL (6.4-8.2)
[2023-01-24] MEDS ORDERED: SPIR25 PO (13:54)
--- NOTE | 2023-01-24 14:12 | NUR ---
DISCHARGE NOTE- PT FAMILY WAS GIVEN VERBAL AND WRITTEN DISCHARGE INSTRUCTIONS AND ACKNOWLEDGED UNDERSTANDING OF THEM, NO FURTHER QUESTIONS AT THE TIME OF DISCHARGE. PT ESCORTED OUT BY FAMILY VIA WC, NO S&S OF DISTRESS NOTED, FAMILY DECLINED ESCORT FROM STAFF. IV DC'D PRIOR TO DISCHARGE.
== END 2023-01-24 14:04 | disposition home or self-care (01) | DRG 871 ==
LOC: ER 09:57 → MEDS 13:54
PROVIDERS: Internal Medicine; Student in an Organized Health Care Education/Training Program; ADMIT Family Medicine
DX: A41.9 Sepsis, unspecified organism (principal); J18.9 Pneumonia, unspecified organism; J96.01 Acute respiratory failure with hypoxia; F03.911 Unspecified dementia, unspecified severity, with agitation; F03.93 Unspecified dementia, unspecified severity, with mood disturbance; J45.909 Unspecified asthma, uncomplicated; E11.9 Type 2 diabetes mellitus without complications; Z20.822 Contact with and (suspected) exposure to COVID-19; I10 Essential (primary) hypertension; E78.5 Hyperlipidemia, unspecified; M54.50 Low back pain, unspecified; G89.29 Other chronic pain; I70.0 Atherosclerosis of aorta; F20.9 Schizophrenia, unspecified; K21.9 Gastro-esophageal reflux disease without esophagitis; G47.00 Insomnia, unspecified; M85.80 Other specified disorders of bone density and structure, unspecified site; M19.90 Unspecified osteoarthritis, unspecified site; Z88.0 Allergy status to penicillin; Z88.1 Allergy status to other antibiotic agents; Z79.84 Long term (current) use of oral hypoglycemic drugs; Z79.891 Long term (current) use of opiate analgesic; Z79.899 Other long term (current) drug therapy; Z87.440 Personal history of urinary (tract) infections; Z90.49 Acquired absence of other specified parts of digestive tract; Z98.890 Other specified postprocedural states; Z79.2 Long term (current) use of antibiotics
CPT/HCPCS: 0241U; 36415; 71045; 80048; 80053; 82947; 83605; 83880; 84145; 85025; 87040; 93005; 93010; 94640; 94664; 94760; 96365; 96376; 97110; 97162; 97165; 97535; 99285-25; A9270; J0696; J1650; J1815; J1940; J7030; J7050